=== PATIENT | female | born 1990 | race Caucasian/White ===

== ENCOUNTER 2024-04-03 17:21 | Observation (INO) | payer OTHER, SELFPAY ==
[2024-04-03] VITALS (25 sets, daily range): BP systolic 121–158; BP diastolic 70–100; PULSE 62–83; TEMP 36.4–36.6
[2024-04-03 18:10] LABS: Bilirubin Urine NEGATIVE (NEGATIVE); Blood Urine NEGATIVE (NEGATIVE); Clarity Urine CLEAR (CLEAR); Color Urine YELLOW (YELLOW); Glucose Urine UA NEGATIVE (NEGATIVE); Ketones Urine >=80 mg/dL (NEGATIVE); Leukocyte Esterase Urine TRACE (NEGATIVE); Nitrite Urine NEGATIVE (NEGATIVE); Protein Urine TRACE mg/dL (NEG/TRACE); Specific Gravity Urine 1.025 (1.005-1.025); Urobilinogen Urine 0.2 EU/dL (0.2-1.0)
[2024-04-03 18:15] LABS: Urine Microscopic Indicated YES
[2024-04-03 18:24] LABS: Bacteria Urine SMALL #/HPF (NONE SEEN); Cast Seen? NONE SEEN #/LPF (NONE SEEN); Crystals Seen? None Seen #/HPF (None Seen); Mucus Urine SMALL (NONE SEEN); RBC Urine 0-2 #/HPF (0-2); Squamous Epithelial Cell Urine MANY #/LPF (NONE/RARE); Urine Culture Indicated YES; WBC Urine 0-2 #/HPF (NONE SEEN)
[2024-04-03 18:26] LABS: Creatinine Urine Random 227.23 mg/dL (20.00-300.00); Protein Creatinine Ratio Urine 0.15; Total Protein Urine Random 35.1 mg/dL (<=11.9)
--- NOTE | 2024-04-03 18:38 | US_ITS ---
[address] [address] Patient Name: LOUISE LEIVA MRN: [id number] date: 1990 Sex: F Assigned Patient Location: [facility] Current Patient Location: [facility] Accession/Order Number: [id number] Exam Date: 04/03/2024 20:00 Report Date: 04/03/2024 21:59 At the request of: CYNTHIA ABEBE Procedure: US OB cervical length Limited transabdominal OB and transvaginal cervical length ULTRASOUND, 04/03/2024 8:00 PM EDT COMPARISON: No prior comparison. History:new patient with premature contractions Transabdominal OB FINDINGS: There is a single fetus in a cephalic presentation with longitudinal lie demonstrating cardiac activity on real-time sonography with a heart rate of 148 beats per minute. The amniotic fluid is appropriate with a fluid index of 15.1 cm with the largest pocket measuring 4.9 cm. Transvaginal cervical length assessment: The cervix is closed with a length of 3.8 cm. US/US OB cervical length IMPRESSION: 1. Single live intrauterine in a cephalic presentation with longitudinal lie demonstrating a heart rate of 148 bpm. 2. Amniotic fluid index is 15.1 cm. 3. The cervix is closed with a length of 3.8 cm. Electronically authenticated by: Micheal MORENO Date: 04/03/2024 21:59
--- NOTE | 2024-04-03 18:39 | US_ITS ---
The [address] [address] Patient Name: LOUISE LEIVA MRN: [id number] date: 1990 Sex: F Assigned Patient Location: [facility] Current Patient Location: [facility] Accession/Order Number: [id number] Exam Date: 04/03/2024 20:00 Report Date: 04/03/2024 21:59 At the request of: CYNTHIA ABEBE Procedure: US OB amniotic fluid vol Limited transabdominal OB and transvaginal cervical length ULTRASOUND, 04/03/2024 8:00 PM EDT COMPARISON: No prior comparison. History:new patient with premature contractions Transabdominal OB FINDINGS: There is a single fetus in a cephalic presentation with longitudinal lie demonstrating cardiac activity on real-time sonography with a heart rate of 148 beats per minute. The amniotic fluid is appropriate with a fluid index of 15.1 cm with the largest pocket measuring 4.9 cm. Transvaginal cervical length assessment: The cervix is closed with a length of 3.8 cm. US/US OB amniotic fluid vol IMPRESSION: 1. Single live intrauterine in a cephalic presentation with longitudinal lie demonstrating a heart rate of 148 bpm. 2. Amniotic fluid index is 15.1 cm. 3. The cervix is closed with a length of 3.8 cm. Electronically authenticated by: Micheal MORENO Date: 04/03/2024 21:59
[2024-04-03] MEDS: LABETALOL HCL 20 MG/4 ML SYRINGE IVP (19:08)
[2024-04-03 19:14] LABS: Basophils Absolute Auto 0.1 10^3/uL (0.0-0.1); Basophils Percent Auto 0.4 % (0.2-2.0); Eosinophils Percent Auto 0.3 % (0.9-7.0); Hemoglobin 12.1 g/dL (12.0-16.0); Immature Granulocytes Abs Auto 0.06 10^3/uL (0.00-0.03); Immature Granulocytes Pct Auto 0.4 % (0.0-0.5); Lymphocytes Absolute Auto 2.1 10^3/uL (1.2-3.8); Lymphocytes Percent Auto 14.9 % (20.5-60.0); Mean Corpuscular HGB Conc 33.6 g/dL (29.9-35.2); Mean Corpuscular Hemoglobin 29.1 pg (26.7-34.0); Mean Corpuscular Volume 86.5 fL (81.0-99.0); Mean Platelet Volume 11.1 fL (9.5-13.5); Monocytes Percent Auto 7.3 % (1.7-12.0); Neutrophils Absolute Auto 10.8 10^3/uL (1.4-6.5); Neutrophils Percent Auto 76.7 % (43.0-75.0); Platelet Count 239 10^3/uL (150-450); Red Blood Count 4.16 10^6/uL (4.20-5.40); Red Cell Distribution Width 12.7 % (11.0-15.0)
[2024-04-03] MEDS: 0.9 % SODIUM CHLORIDE 1,000 ML 50 ML IV (19:17)
[2024-04-03] MEDS: MAGNESIUM-BOLUS FROM THE BAG- 40 GM/1,000 ML IV.SOLN 6 GM IV (19:17)
[2024-04-03] MEDS: BETAMETHASONE ACE/BETAMETHASONE SOD PHOS 30 MG/5 ML 12 MG IM (19:18)
[2024-04-03] MEDS: LACTATED RINGER'S SOLUTION 1,000 ML 999 ML IV (19:21)
[2024-04-03 19:25] LABS: Internal Control Within Normal Limits; SARS-CoV-2 Ag NEGATIVE (NEGATIVE)
[2024-04-03 19:27] LABS: Alanine Aminotransferase 18 U/L (14-59); Aspartate Amino Transferase 17 U/L (15-37); Estimated GFR (African America >60 (>=60); Estimated GFR (Non-African Ame >60 (>=60); Uric Acid 4.8 mg/dL (2.6-6.0)
[2024-04-03 19:30] LABS: INR 0.95; Partial Thromboplastin Time 29.6 sec (22.3-36.2); Prothrombin Time 10.1 sec (9.0-11.6)
[2024-04-03] MEDS: ONDANSETRON PF 4 MG/2 ML VIAL 8 MG IV (19:32)
[2024-04-03] MEDS: MAGNESIUM SULFATE IN WATER 40 GM/1,000 ML IV.SOLN IV (19:37)
[2024-04-03 19:46] LABS: Fibrinogen 522 mg/dL (200-400)
[2024-04-03] MEDS: ACETAMINOPHEN 500 MG TABLET 1000 MG PO (20:39)
--- NOTE | 2024-04-03 21:24 | P.OBLDTN_ITS ---
OB - Triage/Final Diagnosis Visit Information Date of evaluation: 05/03/24 Reason for evaluation: other Comments/Additional reasons for admission: patient arrives in unit with c/o elevated BP, headache, dizziness, nausea and vomiting, shortness of breath. She is currently living in [place], [place] and was here visiting her parents when she started to feel ill. She states she has a 2 yo and she got really sick with him as well, delivered at 36 weeks and was readmitted after delivery for post pre-eclampsia. Evaluation Cervical dilation (cm): 0 Laboratory results: Laboratory Tests 04/03/24 04/03/24 04/03/24 17:45 19:05 19:07 WBC 14.0 H RBC 4.16 L Hgb 12.1 Hct 36.0 MCV 86.5 MCH 29.1 MCHC 33.6 RDW 12.7 Plt Count 239 MPV 11.1 Neut % (Auto) 76.7 H Lymph % (Auto) 14.9 L [place] % (Auto) 7.3 Eos % (Auto) 0.3 L Baso % (Auto) 0.4 Neut # (Auto) 10.8 H Lymph # (Auto) 2.1 [place] # (Auto) 1.0 H Eos # (Auto) 0.0 Baso # (Auto) 0.1 Abs Immat Gran (auto) 0.06 H Imm/Tot Granulo (auto) 0.4 PT 10.1 INR 0.95 APTT 29.6 Fibrinogen 522 H BUN 11.0 Creatinine 0.66 Est GFR ( Amer) >60 Est GFR (Non-Af Amer) >60 Uric Acid 4.8 AST 17 ALT 18 Urine Color Yellow Urine Clarity Clear Urine pH 7.0 Ur Specific [place] 1.025 Urine Protein Trace Urine Glucose (UA) Negative Urine Ketones >=80 A Urine Occult Blood Negative Urine Nitrite Negative Urine Bilirubin Negative Urine Urobilinogen 0.2 Ur Leukocyte Esterase Trace A Urine RBC 0-2 Urine WBC 0-2 A Ur Squamous Epith Cells Many A Urine Crystals None seen Urine Bacteria Small A Urine Casts None seen Urine Mucus Small A Ur Culture Indicated? Yes Ur Random Creatinine 227.23 U Random Total Protein 35.1 H Protein/Creatinin Ratio 0.15 SARS-CoV-2 Ag (CV2AG) Negative Vital signs: Vital Signs - 24 hr 04/03/24 17:48 04/03/24 18:05 04/03/24 18:05 Temperature 98 F Pulse Rate 79 81 Respiratory Rate 18 Blood Pressure 148/99 H 153/96 H 04/03/24 18:21 04/03/24 18:35 04/03/24 18:49 Temperature Pulse Rate 78 79 82 Respiratory Rate Blood Pressure 156/97 H 142/93 H 151/100 H 04/03/24 19:08 04/03/24 19:17 04/03/24 19:23 Temperature Pulse Rate 81 73 62 Respiratory Rate Blood Pressure 129/84 127/79 130/72 04/03/24 19:27 04/03/24 19:32 04/03/24 19:37 Temperature Pulse Rate 77 83 66 Respiratory Rate Blood Pressure 132/80 134/79 121/70 04/03/24 19:42 04/03/24 19:47 04/03/24 19:53 Temperature Pulse Rate 75 65 76 Respiratory Rate Blood Pressure 142/86 H 143/87 H 125/81 04/03/24 19:57 04/03/24 20:02 04/03/24 20:07 Temperature Pulse Rate 75 68 70 Respiratory Rate Blood Pressure 138/84 144/87 H 140/84 04/03/24 20:12 04/03/24 20:17 04/03/24 20:22 Temperature Pulse Rate 68 75 71 Respiratory Rate Blood Pressure 141/86 132/84 130/85 04/03/24 20:27 04/03/24 20:46 04/03/24 21:02 Temperature Pulse Rate 70 68 75 Respiratory Rate Blood Pressure 148/91 H 141/85 158/85 H 04/03/24 21:17 Temperature Pulse Rate 69 Respiratory Rate Blood Pressure 138/87 Infant heart rate baseline: 145 skilled nursing variability: Moderate (6-25 bpm) monitor accelerations: Present monitor decelerations: None Final Diagnosis (1) Elevated blood pressure affecting in third trimester, antepartum: Status: Acute Problem details: RN call me at home with report of elevated blood pressure and states patient is getting sicker. orders given. (2) Nausea and vomiting: Status: Acute (3) Headache: Status: Acute (4) Dizziness: Status: Acute
--- NOTE | 2024-04-03 21:28 | P.EN_ITS ---
Event Note Event Note: i arrived in unit to assess patient. To room, patient is pale, A&O x 3 and appropriate historian. She states her headache is really bad and she just vomited. she has not felt well for 2 days. Assessment performed by this provider. Negative. LS clear x4 bases, HR: NSR without murmur. Patient states since the magnesium sulfate IV was started she is started to feel better. Her Initial pain and discomfort she rated a 7 on a 1-10 scale and states that now it is a 5. monitor tracing is category 1, uterine irritability and irregular contractions. Patient states she is on Procardia 20 mg qhs for contraction discomfort. She states her last she delivered at 36 weeks for elevated blood pressure and was readmitted a few days later for post preeclampsia. With her c/o of headache, N/V, dizziness, weakness, elevated blood pressure I will call [facility] and speak with M for transfer of patient to tertiary care center due to elevated blood pressures with severe features. Called Dr Campbell with report as well. Orders received. I called [facility] and spoke with Dr Tomas and she agrees to accept transfer of patient to [facility] facility. All questions answered from patient and her mom, consent obtained. Patient will be transferred to [facility] between 9:30p-10:30 pm PVU and agrees with the plan of care. Patient is feeling better and stable at the time I left the unit at 9:15 pm
--- NOTE | 2024-04-03 21:29 | PC.NURSE ---
Addendum entered by Lucy Barton RN 04/03/24 21:30: 1938: IV fluid Rates: Left Hand 22g IV: 2gm magnesium per hour. 0.9% NA CL @ 75 ml/hr. Right Hand 20g IV: LR @ 999 ml/hr (500 ml bolus) Original Note: 1937: Bilateral lower reflexes 2-3+. Pt
== END 2024-04-03 22:15 | disposition short-term general hospital (02) ==
PROVIDERS: Admitting Provider Midwife; PCP Family Medicine; Visit Provider Midwife
DX: O16.3 Unspecified maternal hypertension, third trimester (principal); O26.893 Other specified pregnancy related conditions, third trimester; R11.2 Nausea with vomiting, unspecified; R51.9 Headache, unspecified; R42 Dizziness and giddiness; O09.213 Supervision of pregnancy with history of pre-term labor, third trimester; Z20.822 Contact with and (suspected) exposure to COVID-19
CPT/HCPCS: 36415; 51702; 76815; 76817; 81001; 82565; 82570; 84156; 84450; 84460; 84520; 84550; 85025; 85384; 85610; 85730; 87086; 87811; 96372; 96374; 96375; G0378; G0379; J0702; J1920; J2405; J3475